=== PATIENT | male | born 1955 | race Caucasian/White ===

== ENCOUNTER 2020-10-12 12:44 | Emergency (ER) | payer OTHER | END 2020-10-12 14:43 | disposition home or self-care (01) | LOC: CSHERS 12:44 | DX: S20.214A Contusion of middle front wall of thorax, initial encounter (principal); S90.511A Abrasion, right ankle, initial encounter; V89.2XXA Person injured in unspecified motor-vehicle accident, traffic, initial encounter | CPT/HCPCS: 71045 ==